=== PATIENT | female | born 1985 | race Caucasian/White ===

== ENCOUNTER 2018-10-22 00:28 | Emergency (ER) | payer OTHER ==
[~2018-10-22] VITALS: Ht 165.1 cm; Wt 111.1 kg
[2018-10-22 00:34] VITALS: Ht 165.1 cm; Wt 111.1 kg
[2018-10-22] MEDS ORDERED: SOD CHLORIDE 0.9% 1,000 ML IV STA (06:28)
[2018-10-22] MEDS ORDERED: ONDANSETRON 4 MG INJ IV STA (06:28)
[2018-10-22] MEDS ORDERED: KETOROLAC 30 MG INJ IV STA (06:28)
[2018-10-22] MEDS ORDERED: NAPR-985 PO (09:25)
[2018-10-22 09:45] VITALS: BP 120/82; PULSE 69; RESP 20
--- NOTE | 2018-10-22 10:22 | ERD ---
ER Documentation Chief Complaint Chief Complaint HAx8 days;numbness fingers; dx HTN 3 mos ago HPI 33-year-old female presenting with numbness and tingling. Patient states that she had some generalized chest pain. She has generalized numbness with some headaches. States she has some blurry vision. Denies any fevers. Denies any shortness of breath. Medical history is hypertension. NKDA. Surgical history tubal ligation. Social history denies ROS All systems reviewed and are negative except as per history of present illness. Medications Home Meds Active Scripts Naproxen* (Naprosyn*) 500 Mg Tablet, 500 MG PO BID PRN for PAIN AND/OR INFLAMMATION, #30 TAB Prov:PRANAV HOLLINS PA-C 10/22/18 Allergies Allergies: Coded Allergies: No Known Allergy (Verified , 07/16/09) PMhx/Soc Medical and Surgical Hx: pt denies Medical Hx, pt denies Surgical Hx History of Surgery: No Anesthesia Reaction: No Hx Neurological Disorder: No Hx Respiratory Disorders: No Hx Cardiac Disorders: No Hx Psychiatric Problems: No Hx Miscellaneous Medical Probl: No Hx Alcohol Use: No Hx Substance Use: No Hx Tobacco Use: No Smoking Status: Never smoker FmHx Family History: No diabetes, No coronary disease, No other Physical Exam Vitals Vital Signs Date Temp Pulse Resp B/P (MAP) Pulse Ox O2 O2 Flow FiO2 Time Delivery Rate 10/22/18 69 20 120/82 100 Room Air 09:45 (95) 10/22/18 98.7 80 20 151/88 99 00:34 (109) Physical Exam GENERAL: The patient is well-appearing, well-nourished, in no acute distress CHEST: Clear to auscultation bilaterally. There are no rales, wheezes or rhonchi. HEART: Regular rate and rhythm. No murmurs, clicks, rubs or gallops. EXTREMITIES: Equal pulses bilaterally. There is no peripheral clubbing, cyanosis or edema. No focal swelling or erythema. Full range of motion. Grossly neurovascularly intact. NEUROLOGIC: Alert and oriented. Cranial nerves II through XII intact. Motor strength in all 4 extremities with 5 out of 5 strength. Sensation grossly intact. Normal speech and gait. Babinski negative. DTR 2+ throughout. SKIN: There is no apparent rash or petechiae. The skin is warm and dry. Result Diagram: 10/22/18 0709 10/22/18 0749 Results 24 hrs Laboratory Tests Test 10/22/18 07:09 10/22/18 07:14 10/22/18 07:49 White Blood Count 7.0 10^3/ul Red Blood Count 4.58 10^6/ul Hemoglobin 13.6 g/dl Hematocrit 41.6 % Mean Corpuscular Volume 90.8 fl Mean Corpuscular Hemoglobin 29.7 pg Mean Corpuscular 32.7 g/dl Hemoglobin Concent Red Cell Distribution Width 13.2 % Platelet Count 244 10^3/UL Mean Platelet Volume 12.0 fl Immature Granulocytes % 0.300 % Neutrophils % 49.0 % Lymphocytes % 40.9 % Monocytes % 8.1 % Eosinophils % 1.3 % Basophils % 0.4 % Nucleated Red Blood Cells % 0.0 /100WBC Immature Granulocytes # 0.020 10^3/ul Neutrophils # 3.4 10^3/ul Lymphocytes # 2.8 10^3/ul Monocytes # 0.6 10^3/ul Eosinophils # 0.1 10^3/ul Basophils # 0.0 10^3/ul Nucleated Red Blood Cells # 0.0 10^3/ul Urine Color YELLOW Urine Clarity CLEAR Urine pH 6.0 Urine Specific [place] 1.015 Urine Ketones NEGATIVE mg/dL Urine Nitrite NEGATIVE mg/dL Urine Bilirubin NEGATIVE mg/dL Urine Urobilinogen NEGATIVE mg/dL Urine Leukocyte Esterase NEGATIVE Farhad/ul Urine Microscopic RBC 2 /HPF Urine Microscopic WBC 2 /HPF Urine Squamous Epithelial Cells FEW /HPF Urine Bacteria FEW /HPF Urine Hemoglobin NEGATIVE mg/dL Urine Glucose NEGATIVE mg/dL Urine Total Protein NEGATIVE mg/dl POC Beta HCG, Qualitative NEGATIVE Sodium Level 140 mmol/L Potassium Level 3.9 mmol/L Chloride Level 109 mmol/L Carbon Dioxide Level 23 mmol/L Anion Gap 8 Blood Urea Nitrogen 10 mg/dl Creatinine 0.46 mg/dl Est Glomerular Filtrat Rate mL/min > 60 mL/min Glucose Level 97 mg/dl Calcium Level 8.8 mg/dl Total Bilirubin 0.5 mg/dl Direct Bilirubin 0.00 mg/dl Indirect Bilirubin 0.5 mg/dl Aspartate Amino Transf (AST/SGOT) 25 IU/L Alanine 34 IU/L Aminotransferase (ALT/SGPT) Alkaline Phosphatase 85 IU/L Total Protein 7.5 g/dl Albumin 3.9 g/dl Globulin 3.60 g/dl Albumin/Globulin Ratio 1.08 Lipase 63 U/L Current Medications Medications Dose Sig/Do Start Time Status Last (Trade) Ordered Route PRN Stop Time Admin Dose Reason Admin Sodium 1,000 ml @ Q1H STAT 10/22/18 DC 10/22/18 Chloride 1,000 mls/hr IV 06:28 10/22/18 07:15 07:27 Ondansetron 4 mg ONCE STAT 10/22/18 DC 10/22/18 HCl (Zofran IV 06:28 10/22/18 07:17 Inj) 06:30 Ketorolac 30 mg ONCE STAT 10/22/18 DC 10/22/18 Tromethamine IV 06:28 10/22/18 07:22 (Toradol) 06:30 Procedures/MDM EKG: Rate/Rhythm: 67 BPM. Normal Sinus Rhythm QRS, ST, T-waves: No changes consistent w/ acute ischemia Impression: No evidence of ischemia or arrhythmia MDM: 33-year-old female presenting with generalized paresthesias. Patient's exam is within normal limits. Patient's blood work is within normal limits. Patient is discharged with strict ER precautions and told to follow-up with primary care within 1-2 days for close evaluation. Patient is told if symptoms change or worsen to return immediately to the ER. All questions answered at discharge Departure Diagnosis: Primary Impression: Numbness Condition: Stable Patient Instructions: Paraesthesias Referrals: SHOAIB TRENT (PCP) Additional Instructions: FOLLOW UP WITH YOUR PRIMARY CARE PHYSICIAN TOMORROW.Return to this facility if you are not improving as expected. PRANAV HOLLINS PA-C Oct 22, 2018 10:22
== END 2018-10-22 09:46 | disposition home or self-care (01) ==
LOC: FTE 00:28
DX: R20.0 Anesthesia of skin (principal); I10 Essential (primary) hypertension
CPT/HCPCS: 36415; 80053; 81003; 81025; 83690; 85025; 93005; 96374; 96375; J1885; J2405; J7030; Z7502